=== PATIENT | male | born 1995 | race Two or more races ===

== ENCOUNTER 2022-06-14 04:30 | Emergency (ER) | payer SELFPAY ==
[~2022-06-14] VITALS: Ht 167.6 cm; Wt 74.8 kg
--- NOTE | 2022-06-14 05:57 | NUR ---
[id number] etoh found infront of a bar bg 111. Tolerating R/A well with no resp distress.
--- NOTE | 2022-06-14 09:30 | NUR ---
DR. HOROWITZ AT BEDSIDE.
--- NOTE | 2022-06-14 09:38 | NUR ---
Patient discharged to home in stable condition.Pt ambulated with steady gait. vss. [id number]. Written and verbal after care instructions given. Patient verbalizes understanding of instruction.
[2022-06-14 09:40] VITALS: BP 100/55
== END 2022-06-14 09:41 | disposition home or self-care (01) ==
LOC: ER 04:35
DX: F10.129 Alcohol abuse with intoxication, unspecified (principal); Y90.9 Presence of alcohol in blood, level not specified